=== PATIENT | female | born 2005 | race Two or more races ===

== ENCOUNTER 2023-09-21 20:33 | Emergency (ER) | payer SELFPAY ==
[~2023-09-21] VITALS: Ht 172.7 cm; Wt 86.0 kg
[2023-09-21 21:38] VITALS: BP 118/46; PULSE 86; RESP 16; O2SAT 98
== END 2023-09-22 01:17 | disposition admitted as inpatient to this hospital (09) ==
LOC: ER 20:33 → EDBD 20:33 → ER 09-22 01:17
DX: M54.2 Cervicalgia (principal); Z53.21 Procedure and treatment not carried out due to patient leaving prior to being seen by health care provider; V89.2XXA Person injured in unspecified motor-vehicle accident, traffic, initial encounter; Y93.89 Activity, other specified; Y92.89 Other specified places as the place of occurrence of the external cause; Y99.8 Other external cause status